=== PATIENT | male | born 1995 | race Caucasian/White ===

== ENCOUNTER 2018-05-09 10:37 | Emergency (ER) | payer OTHER ==
[2018-05-09 10:45] VITALS: BP 135/106
[2018-05-09] MEDS ORDERED: PROPARACAINE 0.5% OPHTH DROPS 15 ML LEFTEYE STA (12:26)
[2018-05-09] MEDS ORDERED: ERYTHROMYCIN OPHTH OINT 1 GM TUBE RIGHTEYE STA (12:45)
--- NOTE | 2018-05-09 12:54 | ED Physician Documentation ---
PD HPI OPHTHO - Stated complaint Stated Complaint: FB IN RT EYE - Chief complaint Chief Complaint: Heent - History obtained from History obtained from: Patient - History of Present Illness Timing - onset: How many hours ago (4) Timing - details: Still present Location: Right Associated symptoms: FB sensation Contributing factors: Work related Similar symptoms before: Has not had sx before - Additional information Additional information: The patient is a 22-year-old active [employer] [place] male who presents with irritation in his right eye. 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 He has had a foreign body sensation since that time, despite flushing his eye. He does not require corrective lenses. He was not working with chemicals at the time. Review of Systems Eyes: reports: Irritation. denies: Decreased vision Nose: denies: Congestion GI: denies: Nausea, Vomiting Skin: denies: Rash Neurologic: denies: Headache PD PAST MEDICAL HISTORY - Past Medical History Past Medical History: No - Past Surgical History Past Surgical History: Yes HEENT: Tonsil/Adenoidectomy - Allergies Allergies/Adverse Reactions: Allergies Allergy/AdvReac Type Severity Reaction Status Date / Time No Known Drug Allergies Allergy Verified 05/09/18 10:45 - Social History Does the pt smoke?: No Smoking Status: Never smoker Does the pt drink ETOH?: No Does the pt have substance abuse?: No - Immunizations Immunizations are current?: Yes - POLST Patient has POLST: No PD ED PE NORMAL - Vitals Vital signs reviewed: Yes (Initially hypertensive.) - General General: Alert and oriented X 3, Well developed/nourished - HEENT HEENT: Atraumatic, PERRL, EOMI, Other (Visual acuity is 20/20 in the right eye.) - Neck Neck: Supple, no meningeal sign, No adenopathy - Cardiac Cardiac: RRR - Respiratory Respiratory: No respiratory distress, Clear bilaterally - Derm Derm: No rash - Neuro Neuro: Alert and oriented X 3, Normal speech PD ED PE EXPANDED - Eyes Eyes: Visual acuity - see nn (20/20), PERRL, Normal accommodation, EOMI, Right eye, No eyelid FB (everted), Injected conj/sclera, Anterior chambers clear, Normal fundi. No: Eyelid swelling, Corneal FB, Corneal abrasion, Fluorescein uptake Results - Vitals Vitals: Oxygen O2 Source Room air PD MEDICAL DECISION MAKING - ED course Complexity details: considered differential, d/w patient ED course: The patient's presentation is significant for irritation of his right I. There is scleral injection, consistent with conjunctivitis. No foreign body or corneal abrasion was identified on slit lamp examination with fluorescein dye. The upper lid was everted and no foreign body detected. Treatment in the emergency department included instillation of erythromycin ophthalmic ointment in the right eye. The remainder of the tube was dispensed. I discussed with him and his the expected course of disease, outpatient follow-up, as well as potentially worrisome signs or symptoms that should prompt reevaluation in the emergency department. Departure - Departure Disposition: 01 Home, Self Care Clinical Impression: Conjunctivitis Qualifiers: Conjunctivitis type: acute Acute conjunctivitis type: unspecified Laterality: right Qualified Code(s): H10.31 - Unspecified acute conjunctivitis, right eye Condition: Stable Instructions: ED Conjunctivitis Nonspecific Follow-Up: RUBENS LAYNE MD [Physician No Access] - Comments: Instill erythromycin ophthalmic ointment in your right eye 4 times daily for the next 2 days. Follow-up with your primary physician or return to the emergency department if you develop increasing foreign body sensation or pain in your right eye, or if not improving within 48 hours. Forms: Activity restrictions Discharge Date/Time: 05/09/18 13:06
== END 2018-05-09 13:06 | disposition home or self-care (01) ==
LOC: ED 10:37
DX: H10.31 Unspecified acute conjunctivitis, right eye (principal)
CPT/HCPCS: 99282; J3490